=== PATIENT | male | born 1965 | race American Indian/Alaskan Native ===

== ENCOUNTER 2017-08-12 12:37 | Emergency (ER) | payer OTHER ==
[2017-08-12 12:42] VITALS: BP 167/98
[2017-08-12] MEDS ORDERED: ULTRAM PO ONE (13:25)
[2017-08-12] MEDS ORDERED: MOTRIN PO ONE (13:25)
--- NOTE | 2017-08-12 13:27 | Emergency Department Report ---
Blank Doc - Documentation Documentation: Patient is a 51-year-old -[place] male was presented with right shoulder pain. 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 Patient states pain is been progressively worsening over the past 3-4 days. Patient denies any fevers chills nausea vomiting or deformity. Patient states pain is a 7 out of 10 in severity. Patient states he does have full range of motion however is extremely painful. Louie wrap of the right shoulder has been ordered to rule out a large effusion.
--- NOTE | 2017-08-12 14:32 | XRay Report ---
RIGHT SHOULDER: Pain Routine views demonstrate normal bony and soft tissue structures with normal joint alignment of the shoulder. IMPRESSION: Normal study.
--- NOTE | 2017-08-12 14:55 | Emergency Department Report ---
ED General Adult HPI - General Chief complaint: Extremity Injury, Upper Stated complaint: SHOULDER INJURY Time Seen by Provider: 08/12/17 13:06 Source: patient Mode of arrival: Ambulatory Limitations: No Limitations - History of Present Illness Initial comments: Patient is a 51-year-old -[place] male was presented with right shoulder pain. 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 Patient states pain is been progressively worsening over the past 3-4 days. Patient denies any fevers chills nausea vomiting or deformity. Patient states pain is a 7 out of 10 in severity. Patient states he does have full range of motion however is extremely painful. Severity scale (0 -10): 8 - Related Data Previous Rx's Medication Instructions Recorded Last Taken Type Ibuprofen [Motrin] 800 mg PO Q8HR PRN #20 tablet 08/12/17 Unknown Rx methOCARBAMOL [Robaxin TAB] 500 mg PO Q6H PRN #15 tablet 08/12/17 Unknown Rx traMADol [Ultram] 50 mg PO Q6HR PRN #12 tablet 08/12/17 Unknown Rx Allergies Allergy/AdvReac Type Severity Reaction Status Date / Time No Known Allergies Allergy Unverified 08/12/17 12:42 ED Review of Systems ROS: Stated complaint: SHOULDER INJURY Other details as noted in HPI Comment: All other systems reviewed and negative ED Past Medical Hx - Past Medical History Hx Hypertension: Yes Hx Diabetes: Yes - Surgical History Past Surgical History?: No - Social History Smoking Status: Current Every Day Smoker Substance Use Type: Alcohol - Medications Home Medications: Home Medications Medication Instructions Recorded Confirmed Last Taken Type Ibuprofen [Motrin] 800 mg PO Q8HR PRN #20 tablet 08/12/17 Unknown Rx methOCARBAMOL [Robaxin TAB] 500 mg PO Q6H PRN #15 tablet 08/12/17 Unknown Rx traMADol [Ultram] 50 mg PO Q6HR PRN #12 tablet 08/12/17 Unknown Rx ED Physical Exam - General Limitations: No Limitations General appearance: alert, in no apparent distress - Head Head exam: Present: atraumatic, normocephalic - Eye Eye exam: Present: normal appearance - ENT ENT exam: Present: mucous membranes moist - Neck Neck exam: Present: normal inspection - Respiratory Respiratory exam: Present: normal lung sounds bilaterally. Absent: respiratory distress, wheezes, rales, rhonchi - Cardiovascular Cardiovascular Exam: Present: regular rate, normal rhythm. Absent: systolic murmur, diastolic murmur, rubs, gallop - GI/Abdominal GI/Abdominal exam: Present: soft, normal bowel sounds. Absent: distended, tenderness, guarding - Rectal Rectal exam: Present: deferred - Extremities Exam Extremities exam: Present: normal inspection, full ROM, tenderness (right shoulder. There is no deformity. There is no warmth to the skin.) - Back Exam Back exam: Present: normal inspection - Neurological Exam Neurological exam: Present: alert, oriented X3 - Psychiatric Psychiatric exam: Present: normal affect, normal mood - Skin Skin exam: Present: warm, dry, intact, normal color. Absent: rash ED Course Vital Signs 08/12/17 12:40 Temperature 97.9 F Pulse Rate 70 Respiratory 18 Rate Blood Pressure 167/98 O2 Sat by Pulse 95 Oximetry ED Medical Decision Making - Radiology Data Radiology results: report reviewed No acute process - Medical Decision Making No joint effusion is seen on the patient's shoulder x-ray. This makes bursitis less likely. 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 Patient be discharged home with follow-up with orthopedics. Critical care attestation.: If time is entered above; I have spent that time in minutes in the direct care of this critically ill patient, excluding procedure time. ED Disposition Clinical Impression: Rotator cuff (capsule) sprain Qualifiers: Encounter type: initial encounter Laterality: right Qualified Code(s): S43.421A - Sprain of right rotator cuff capsule, initial encounter Disposition: TO HOME OR SELFCARE Is pt being admited?: No Does the pt Need Aspirin: No Condition: Stable Instructions: Rotator Cuff Injury (ED) Prescriptions: Ibuprofen [Motrin] 800 mg PO Q8HR PRN #20 tablet PRN Reason: Pain methOCARBAMOL [Robaxin TAB] 500 mg PO Q6H PRN #15 tablet PRN Reason: Pain traMADol [Ultram] 50 mg PO Q6HR PRN #12 tablet PRN Reason: Pain Referrals: JAH FRANCO MD [Staff Physician] - 3-5 Days
== END 2017-08-12 15:01 | disposition home or self-care (01) ==
LOC: ED 12:37
DX: S43.421A Sprain of right rotator cuff capsule, initial encounter (principal); I10 Essential (primary) hypertension; E11.9 Type 2 diabetes mellitus without complications; F17.200 Nicotine dependence, unspecified, uncomplicated; X50.3XXA Overexertion from repetitive movements, initial encounter; Y93.89 Activity, other specified; Y99.8 Other external cause status; Y92.89 Other specified places as the place of occurrence of the external cause
CPT/HCPCS: 99283

== ENCOUNTER 2017-10-09 20:17 | Inpatient (IN) | payer OTHER ==
[2017-10-09 22:08] LABS: Basophils # (Auto) 0.2 K/mm3 (0.0-0.1); Basophils % (Auto) 1.2 % (0.0-1.8); Eosinophils % (Auto) 0.2 % (0.0-4.3); Hematocrit 49.8 % (35.5-45.6); Hemoglobin 16.5 gm/dl (11.8-15.2); Lymphocytes # (Auto) 2.8 K/mm3 (1.2-5.4); Lymphocytes % (Auto) 21.6 % (13.4-35.0); Mean Corpuscular HGB Conc 33 % (32-34); Mean Corpuscular Hemoglobin 29 pg (28-32); Mean Corpuscular Volume 86 fl (84-94); Monocytes # (Auto) 0.9 K/mm3 (0.0-0.8); Monocytes % (Auto) 6.9 % (0.0-7.3); Platelet Count 282 K/mm3 (140-440); Red Blood Count 5.76 M/mm3 (3.65-5.03); Red Cell Distribution Width 14.1 % (13.2-15.2)
[2017-10-09 22:13] LABS: BUN/Creatinine Ratio 10; Blood Urea Nitrogen 10 mg/dL (9-20); Calcium 9.4 mg/dL (8.4-10.2); Hemolysis Index 14
[2017-10-10] MEDS ORDERED: NACL 0.9% 1000 ML 1,000 ML IV ONE (06:19)
--- NOTE | 2017-10-10 06:19 | Emergency Department Report ---
ED General Adult HPI - General Chief complaint: Dizziness Stated complaint: WELLNESS CHECKUP Time Seen by Provider: 10/10/17 06:16 Source: patient Mode of arrival: Ambulatory Limitations: No Limitations - History of Present Illness Initial comments: 51-year-old male reports the onset of dizziness and nausea this morning. Presented to the emergency department with a heart rate of 145. The rhythm was atrial flutter versus supraventricular tachycardia. At the time of my encounter and noted that his heart rate has spontaneously cardioverted to sinus bradycardia in the 50s. He states that he is feeling less dizzy and his nausea has resolved. He did not experience chest pain or shortness of breath. He states sometimes he is short of breath on exertion but not acutely so today. He did not experience any headache, focal weakness or numbness difficulty speaking or walking. Patient states he's had no prior cardiac problems or evaluation. -: Sudden Consistency: now resolved Improves with: none Worsens with: none Associated Symptoms: denies other symptoms Treatments Prior to Arrival: none - Related Data Previous Rx's Medication Instructions Recorded Last Taken Type Ibuprofen [Motrin] 800 mg PO Q8HR PRN #20 tablet 08/12/17 Unknown Rx methOCARBAMOL [Robaxin TAB] 500 mg PO Q6H PRN #15 tablet 08/12/17 Unknown Rx traMADol [Ultram] 50 mg PO Q6HR PRN #12 tablet 08/12/17 Unknown Rx Allergies Allergy/AdvReac Type Severity Reaction Status Date / Time No Known Allergies Allergy Unverified 08/12/17 12:42 ED Review of Systems ROS: Stated complaint: WELLNESS CHECKUP Other details as noted in HPI Constitutional: denies: chills, fever Eyes: denies: eye pain, eye discharge, vision change ENT: denies: ear pain, throat pain Respiratory: denies: cough, shortness of breath, wheezing Cardiovascular: denies: chest pain, palpitations (patient was unaware of his heart racing and likewise unaware of his spontaneous cardioversion) Endocrine: no symptoms reported Gastrointestinal: denies: abdominal pain, nausea, diarrhea Genitourinary: denies: urgency, dysuria Musculoskeletal: denies: back pain, joint swelling, arthralgia Skin: denies: rash, lesions Neurological: denies: headache, weakness, paresthesias Psychiatric: denies: anxiety, depression Hematological/Lymphatic: denies: easy bleeding, easy bruising ED Past Medical Hx - Past Medical History Previous Medical History?: Yes Hx Hypertension: Yes Hx Diabetes: Yes - Surgical History Past Surgical History?: No - Social History Smoking Status: Current Every Day Smoker Substance Use Type: Alcohol, Marijuana - Medications Home Medications: Home Medications Medication Instructions Recorded Confirmed Last Taken Type Ibuprofen [Motrin] 800 mg PO Q8HR PRN #20 tablet 08/12/17 Unknown Rx methOCARBAMOL [Robaxin TAB] 500 mg PO Q6H PRN #15 tablet 08/12/17 Unknown Rx traMADol [Ultram] 50 mg PO Q6HR PRN #12 tablet 08/12/17 Unknown Rx ED Physical Exam - General Limitations: No Limitations General appearance: alert, in no apparent distress - Head Head exam: Present: atraumatic, normocephalic - Eye Eye exam: Present: normal appearance. Absent: scleral icterus - ENT ENT exam: Present: mucous membranes moist - Neck Neck exam: Present: normal inspection. Absent: tenderness, meningismus - Respiratory Respiratory exam: Present: normal lung sounds bilaterally. Absent: respiratory distress - Cardiovascular Cardiovascular Exam: Present: regular rate, normal rhythm. Absent: systolic murmur, diastolic murmur, rubs, gallop - GI/Abdominal GI/Abdominal exam: Present: soft, normal bowel sounds. Absent: distended, tenderness, guarding, rebound, rigid - Rectal Rectal exam: Present: deferred - Extremities Exam Extremities exam: Present: normal inspection - Back Exam Back exam: Present: normal inspection - Neurological Exam Neurological exam: Present: alert, oriented X3, CN II-XII intact. Absent: motor sensory deficit - Psychiatric Psychiatric exam: Present: normal affect, normal mood - Skin Skin exam: Present: warm, dry, intact, normal color. Absent: rash ED Course Vital Signs 10/09/17 10/10/17 10/10/17 21:05 03:23 04:00 Temperature 99.1 F 98.7 F Pulse Rate 134 H 51 L Pulse Rate [ Lying] Pulse Rate [ Sitting] Pulse Rate [ Standing] Respiratory 20 17 Rate Blood Pressure 117/95 132/95 Blood Pressure 133/92 [Left] Blood Pressure [Lying] Blood Pressure [Sitting] Blood Pressure [Standing] O2 Sat by Pulse 95 97 99 Oximetry 10/10/17 10/10/17 10/10/17 05:00 05:35 06:00 Temperature Pulse Rate Pulse Rate [ 51 L Lying] Pulse Rate [ 55 L Sitting] Pulse Rate [ 56 L Standing] Respiratory Rate Blood Pressure 128/75 127/80 Blood Pressure [Left] Blood Pressure 128/81 [Lying] Blood Pressure 131/78 [Sitting] Blood Pressure 127/76 [Standing] O2 Sat by Pulse 99 99 Oximetry 10/10/17 10/10/17 10/10/17 06:50 07:00 07:10 Temperature 98 F Pulse Rate 65 52 L 54 L Pulse Rate [ Lying] Pulse Rate [ Sitting] Pulse Rate [ Standing] Respiratory 17 18 12 Rate Blood Pressure 137/100 140/101 140/101 Blood Pressure 140/101 [Left] Blood Pressure [Lying] Blood Pressure [Sitting] Blood Pressure [Standing] O2 Sat by Pulse 97 Oximetry 10/10/17 10/10/17 10/10/17 07:20 07:30 07:40 Temperature Pulse Rate 65 57 L 57 L Pulse Rate [ Lying] Pulse Rate [ Sitting] Pulse Rate [ Standing] Respiratory 11 L 14 13 Rate Blood Pressure 137/100 131/98 131/98 Blood Pressure [Left] Blood Pressure [Lying] Blood Pressure [Sitting] Blood Pressure [Standing] O2 Sat by Pulse Oximetry 10/10/17 10/10/17 10/10/17 07:50 08:00 08:10 Temperature 98 F Pulse Rate 53 L 52 L 61 Pulse Rate [ Lying] Pulse Rate [ Sitting] Pulse Rate [ Standing] Respiratory 14 18 6 L Rate Blood Pressure 131/98 134/101 134/101 Blood Pressure 131/101 [Left] Blood Pressure [Lying] Blood Pressure [Sitting] Blood Pressure [Standing] O2 Sat by Pulse 97 Oximetry 10/10/17 10/10/17 10/10/17 08:20 08:30 08:40 Temperature Pulse Rate 58 L 64 53 L Pulse Rate [ Lying] Pulse Rate [ Sitting] Pulse Rate [ Standing] Respiratory 14 10 L 14 Rate Blood Pressure 134/101 139/99 139/99 Blood Pressure [Left] Blood Pressure [Lying] Blood Pressure [Sitting] Blood Pressure [Standing] O2 Sat by Pulse Oximetry 10/10/17 10/10/17 10/10/17 08:50 09:00 09:10 Temperature 98 F Pulse Rate 66 54 L 58 L Pulse Rate [ Lying] Pulse Rate [ Sitting] Pulse Rate [ Standing] Respiratory 13 18 11 L Rate Blood Pressure 139/99 139/97 139/97 Blood Pressure 139/97 [Left] Blood Pressure [Lying] Blood Pressure [Sitting] Blood Pressure [Standing] O2 Sat by Pulse 97 Oximetry 10/10/17 10/10/17 10/10/17 09:20 09:30 09:40 Temperature Pulse Rate 61 57 L 54 L Pulse Rate [ Lying] Pulse Rate [ Sitting] Pulse Rate [ Standing] Respiratory 12 13 18 Rate Blood Pressure 139/97 139/97 138/105 Blood Pressure [Left] Blood Pressure [Lying] Blood Pressure [Sitting] Blood Pressure [Standing] O2 Sat by Pulse Oximetry 10/10/17 10/10/17 09:50 09:57 Temperature 98 F Pulse Rate 55 L 51 L Pulse Rate [ Lying] Pulse Rate [ Sitting] Pulse Rate [ Standing] Respiratory 17 18 Rate Blood Pressure 138/105 Blood Pressure 138/99 [Left] Blood Pressure [Lying] Blood Pressure [Sitting] Blood Pressure [Standing] O2 Sat by Pulse 98 Oximetry - Reevaluation(s) Reevaluation #1: The patient's 12-lead EKG shows a supraventricular tachycardia possibly 21 flutter. He spontaneously reverted to sinus bradycardia. Patient was unaware of these events. I believe monitoring is judicious. He was admitted to the hospitalist service for further care and cardiac evaluation. 10/10/17 11:29 ED Medical Decision Making - Lab Data Result diagrams: 10/09/17 21:33 10/09/17 21:33 Laboratory Results - last 24 hr 10/09/17 10/09/17 21:33 21:33 WBC 13.0 H RBC 5.76 H Hgb 16.5 H Hct 49.8 H MCV 86 MCH 29 MCHC 33 RDW 14.1 Plt Count 282 Lymph % (Auto) 21.6 [place] % (Auto) 6.9 Eos % (Auto) 0.2 Baso % (Auto) 1.2 Lymph # 2.8 [place] # 0.9 H Eos # 0.0 Baso # 0.2 H Seg Neutrophils % 70.1 H Seg Neutrophils # 9.1 H Sodium 141 Potassium 3.2 L Chloride 101.7 Carbon Dioxide 23 Anion Gap 20 BUN 10 Creatinine 1.0 Estimated GFR > 60 BUN/Creatinine Ratio 10 Glucose 107 H Calcium 9.4 - EKG Data -: EKG Interpreted by Me (EKG #1 shows ventricular tachycardia at 145 possibly flutter ) - EKG Data EKG #2 sinus bradycardia slightly leftward axis nonspecific changes 10/10/17 11:31 - Radiology Data Radiology results: report reviewed (chest x-ray no acute process) Critical care attestation.: If time is entered above; I have spent that time in minutes in the direct care of this critically ill patient, excluding procedure time. ED Disposition Clinical Impression: Supraventricular tachycardia Atrial flutter Qualifiers: Atrial flutter type: typical Qualified Code(s): I48.3 - Typical atrial flutter Disposition: DC-09 OP ADMIT IP TO THIS HOSP Is pt being admited?: Yes Does the pt Need Aspirin: Yes Condition: Stable Time of Disposition: 11:32
--- NOTE | 2017-10-10 06:46 | XRay Report ---
FINAL REPORT EXAM: XR CHEST 1V AP HISTORY: hypertension TECHNIQUE: AP portable view(s) of the chest obtained. PRIORS: None. FINDINGS: No mediastinal shift. Cardiac silhouette is not enlarged. No pneumothorax, effusion, or focal pulmonary opacity identified. No acute skeletal findings. IMPRESSION: No acute pulmonary finding identified.
[2017-10-10] MEDS ORDERED: K-DUR PO ONE (07:34)
[2017-10-10 07:53] LABS: INR 0.97 (0.87-1.13)
[2017-10-10 07:54] LABS: Partial Thromboplastin Time 30.1 Sec. (24.2-36.6)
[2017-10-10 08:01] LABS: Creatine Kinase MB 4.5 ng/mL (0.0-4.0)
[2017-10-10 08:03] LABS: Alanine Aminotransferase 19 units/L (7-56)
[2017-10-10 08:07] LABS: Free T4 (Free Thyroxine) 1.2 ng/dL (0.76-1.46)
[2017-10-10 08:28] LABS: Bilirubin,Direct < 0.2 mg/dL (0-0.2)
--- NOTE | 2017-10-10 09:56 | History and Physical Report ---
History of Present Illness Date of examination: 10/10/17 Date of admission: 10/10/17 09:05 History of present illness: 51-year-old male with history of hypertension, diabetes and questionable CHF presented to the ER with the onset of dizziness and nausea since this morning. Patient states that he has been feeling weak for last couple days and experienced chest tightness. 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 But he felt dizzy lightheaded, and felt his heart was beating too fast. He also experienced retrosternal chest tightness. He then decided to come to the hospital for further evaluation. On presentation to the emergency department his heart rate was 145. The rhythm was atrial flutter versus supraventricular tachycardia. He then spontaneously cardioverted to sinus bradycardia in the 50s. He now states that he is feeling less dizzy and his nausea has resolved. He does not have any chest pain or shortness of breath now. He states sometimes he is short of breath on exertion but not acutely so today. He did not experience any headache, focal weakness or numbness difficulty speaking or walking. He was called for admission for further evaluation and management. Past medical History: h/o hypertension, diabetes mellitus and CHF Past surgical History: None Social History: Lives with family, positive for smoking, denies drinking and elicit drug abuse. Family History: Significant for diabetes and hypertension. Review of System: Constitutional: no fever, no chills, no weight loss Ears, eyes, nose, mouth and throat: no nasal congestion, no nasal discharge, no sinus pressure, no vision change, no red eye. Neck: No neck pain or rigidity. Cardiovascular: No chest pain, no orthopnea, no palpitations, no leg swelling Respiratory: no shortness of breath, no cough, no congestion, no wheezing Gastrointestinal: no abdominal pain, no nausea, no vomiting Genitourinary : no dysuria, no hematuria Musculoskeletal: no joint swelling or muscle ache Integumentary: no rash, no pruritis Neurological: no parathesias, no numbness, no tingling Endocrine: no cold or heat intolerance, no polyuria or polydipsia Hematologic/Lymphatic: no easy bruising, no easy bleeding, no gland swelling Allergic/Immunologic: no urticaria, no angioedema. Medications and Allergies Allergies Allergy/AdvReac Type Severity Reaction Status Date / Time No Known Allergies Allergy Unverified 08/12/17 12:42 Home Medications Medication Instructions Recorded Confirmed Last Taken Type No Known Home Medications [No 10/12/17 10/12/17 Unknown History Reported Home Medications] Active Meds: Active Medications Sodium Chloride (Nacl 0.9% 1000 Ml) 1,000 mls @ 125 mls/hr IV ONCE ONE Stop: 10/10/17 14:18 Last Admin: 10/10/17 06:48 Dose: 125 mls/hr Exam - Physical Exam Narrative exam: GENERAL: well-developed and well-nourished male lying on bed appeared to be in no discomfort. HEENT: Normocephalic. Atraumatic. No conjunctival congestion or icterus. Patient has moist mucous membranes. NECK: Supple. Trachea midline. CHEST/LUNGS: Clear to auscultated bilaterally, breathing nonlabored. No wheezes crackles or rhonchi. HEART/CARDIOVASCULAR: Regular in rate and rhythm. S1 and S2 positive. ABDOMEN: Abdomen is soft, nontender. Patient has normal bowel sounds. SKIN: There is no rash. Warm and dry. NEURO: No focal motor deficit. Follows command. MUSCULOSKELETAL: No joint effusion or tenderness. EXTRIMITY: No edema, no cyanosis or clubbing. PSYCH: Cooperative. - Constitutional Vitals: Temp Pulse Resp BP Pulse Ox 98.7 F 51 L 17 127/80 99 10/10/17 03:23 10/10/17 05:35 10/10/17 03:23 10/10/17 06:00 10/10/17 06:00 Results - Labs CBC & Chem 7: 10/10/17 11:50 10/11/17 07:51 Labs: Abnormal lab results 10/09/17 10/09/17 10/10/17 Range/Units 21:33 21:33 07:11 WBC 13.0 H (4.5-11.0) K/mm3 RBC 5.76 H (3.65-5.03) M/mm3 Hgb 16.5 H (11.8-15.2) gm/dl Hct 49.8 H (35.5-45.6) % [place] # 0.9 H (0.0-0.8) K/mm3 Baso # 0.2 H (0.0-0.1) K/mm3 Seg Neutrophils % 70.1 H (40.0-70.0) % Seg Neutrophils # 9.1 H (1.8-7.7) K/mm3 Potassium 3.2 L (3.6-5.0) mmol/L Glucose 107 H (75-100) mg/dL Total Creatine Kinase 286 H (55-170) units/L CK-MB (CK-2) 4.5 H (0.0-4.0) ng/mL Assessment and Plan Atrial flutter - Converted to sinus rhythm now - We'll continue to monitor - We'll place on Cardizem by mouth 30 mg every 6 hours - We'll get 2-D echocardiogram, consult cardiology - We'll follow cardiology recommendation for anticoagulation Hypertension, benign - We'll manage with Cardizem for now - Adjust med as needed Diabetes mellitus type 2, will obtain A1c, SSI for now Hypokalemia, will replete and monitor CHF by history - Patient does not know his ejection fraction - No previous records available at this time - We'll follow 2-D echocardiogram result - Patient appears compensated now, no sign of CHF exacerbation DVT prophylaxis, with Lovenox
[2017-10-10 10:54] LABS: Bacteria,Urine 1+ /HPF (Negative); Bilirubin,Urine NEG (Negative); Blood,Urine NEG (Negative); Color,Urine Yellow (Yellow); Mucus,Urine 3+ /HPF; Urobilinogen,Urine < 2.0 mg/dL (<2.0)
[2017-10-10 11:07] LABS: Amphetamine Screen,Urine PRESUMPTIVE NEGATIVE; Benzodiazepines Screen,Urine PRESUMPTIVE NEGATIVE; Methadone Screen,Urine PRESUMPTIVE NEGATIVE; Opiate Screen,Urine PRESUMPTIVE NEGATIVE
[2017-10-10 11:20] LABS: Cannabinoid Screen,Urine PRESUMPTIVE POSITIVE; Cocaine Screen,Urine PRESUMPTIVE POSITIVE
[2017-10-10 12:23] LABS: Hemoglobin 15.4 gm/dl (11.8-15.2); Mean Corpuscular HGB Conc 33 % (32-34); Mean Corpuscular Hemoglobin 29 pg (28-32); Mean Corpuscular Volume 86 fl (84-94); Platelet Count 245 K/mm3 (140-440); Red Blood Count 5.37 M/mm3 (3.65-5.03); Red Cell Distribution Width 14.1 % (13.2-15.2)
[2017-10-10] MEDS: CARDIZEM PO SCH ×2 (15:41→18:34)
[2017-10-10] MEDS: HALFPRIN EC PO SCH (15:41)
[2017-10-10] MEDS: LOVENOX SUB-Q SCH (22:16)
[2017-10-11] MEDS: CARDIZEM PO SCH ×4 (03:19→17:34)
[2017-10-11 08:41] LABS: BUN/Creatinine Ratio 11; Blood Urea Nitrogen 12 mg/dL (9-20); Calcium 8.7 mg/dL (8.4-10.2); Hemolysis Index 6
[2017-10-11] MEDS: HALFPRIN EC PO SCH (09:11)
[2017-10-11] MEDS ORDERED: K-DUR PO NR (11:25)
--- NOTE | 2017-10-11 13:05 | XRay Report ---
AP CHEST: HISTORY: Short of breath AP view of the chest demonstrates a normal mediastinal and cardiac contour with clear lungs and normal bony and soft tissue structures. IMPRESSION: Unremarkable AP chest.
--- NOTE | 2017-10-11 14:37 | Progress Note ---
Subjective Date of service: 10/11/17 Interval history: CONSULT DICTATED RECOMM ECHO//THALL//ELIQUIS Objective Vital Signs Temp Pulse Resp BP BP Pulse Ox 10/11/17 12:09 57 L 10/11/17 11:18 98.2 F 69 20 189/117 99 10/11/17 11:11 68 10/11/17 07:53 97.7 F 60 20 144/99 96 10/11/17 06:33 75 131/78 10/11/17 04:36 98.9 F 75 18 131/78 98 10/11/17 04:10 161/111 10/11/17 03:56 60 10/11/17 03:19 60 163/109 10/11/17 01:13 98 F 60 18 163/109 100 10/11/17 00:16 163/109 10/10/17 20:22 97.9 F 77 20 156/101 95 10/10/17 19:17 73 156/101 97 10/10/17 18:34 68 10/10/17 15:41 65 138/85 10/10/17 15:37 97.8 F 57 L 20 138/85 94 - Labs and Meds Comprehensive Metabolic Panel 10/11/17 Range/Units 07:51 Sodium 142 (137-145) mmol/L Potassium 3.3 L (3.6-5.0) mmol/L Chloride 102.0 (98-107) mmol/L Carbon Dioxide 26 (22-30) mmol/L BUN 12 (9-20) mg/dL Creatinine 1.1 (0.8-1.5) mg/dL Glucose 95 (75-100) mg/dL Calcium 8.7 (8.4-10.2) mg/dL
--- NOTE | 2017-10-11 18:50 | Progress Note ---
Assessment and Plan Atrial flutter - Converted to sinus rhythm since admission - We'll continue to monitor - cont on Cardizem by mouth 30 mg every 6 hours - preserved EF on 2-D echocardiogram, consulted cardiology - We'll follow cardiology recommendation for anticoagulation, plan for stress test tomorrow Hypertension, benign - We'll manage with Cardizem for now - Adjust med as needed Diabetes mellitus type 2, will obtain A1c, SSI for now Hypokalemia, will replete and monitor CHF by history, ruled out - Patient appears compensated now, no sign of CHF exacerbation - preserved EF on 2d echo DVT prophylaxis, with Lovenox Subjective Date of service: 10/11/17 Interval history: Pt seen and examined no chest pain or SOB Objective - Exam Narrative Exam: GENERAL: well-developed and well-nourished male lying on bed appeared to be in no discomfort. HEENT: Normocephalic. Atraumatic. No conjunctival congestion or icterus. Patient has moist mucous membranes. NECK: Supple. Trachea midline. CHEST/LUNGS: Clear to auscultated bilaterally, breathing nonlabored. No wheezes crackles or rhonchi. HEART/CARDIOVASCULAR: Regular in rate and rhythm. S1 and S2 positive. ABDOMEN: Abdomen is soft, nontender. Patient has normal bowel sounds. SKIN: There is no rash. Warm and dry. NEURO: No focal motor deficit. Follows command. MUSCULOSKELETAL: No joint effusion or tenderness. EXTRIMITY: No edema, no cyanosis or clubbing. PSYCH: Cooperative. - Constitutional Vitals: Vital Signs - 12hr 10/11/17 10/11/17 10/11/17 07:53 11:11 11:18 Temperature 97.7 F 98.2 F Pulse Rate 60 68 69 Respiratory 20 20 Rate Blood Pressure 144/99 189/117 O2 Sat by Pulse 96 99 Oximetry 10/11/17 10/11/17 10/11/17 12:09 16:18 17:34 Temperature 98.3 F Pulse Rate 57 L 64 64 Respiratory 20 Rate Blood Pressure 150/89 150/89 O2 Sat by Pulse 94 Oximetry - Labs CBC & Chem 7: 10/10/17 11:50 10/11/17 07:51 Labs: Abnormal lab results 10/11/17 Range/Units 07:51 Potassium 3.3 L (3.6-5.0) mmol/L
[2017-10-11] MEDS: LOVENOX SUB-Q SCH (22:15)
[2017-10-12] MEDS: CARDIZEM PO SCH ×3 (00:10→11:42)
--- NOTE | 2017-10-12 10:56 | Consultation ---
HISTORY OF PRESENT ILLNESS: The patient is a 51-year-old male with a history of hypertension, diabetes, hyperlipidemia, heart failure, and smoking. He presented with dizziness and nausea, was found to be in atrial flutter with a rapid ventricular response. He spontaneously converted to sinus rhythm. There has been no chest pain or shortness of breath. There is a prior history of congestive heart failure, but no history of strokes or coronary artery disease. He states his blood pressure is under control. He is trying to stop smoking, only smoking a few cigarettes a day. He is moderately active and works as a truck sales representative. He had occasional dyspnea on exertion. He did not describe any sleep disorders and he is trying to eat healthy. He sees a doctor on a regular basis. PAST HISTORY: Smoking just a few cigarettes a day. Alcohol, no heavy use. OPERATIONS: None. FAMILY HISTORY: Diabetes and hypertension. MEDICATIONS: See the nurse's list. REVIEW OF SYSTEMS: No other complaints or medical problems. ALLERGIES: None. HOME MEDICATIONS: Include Motrin, Ultram, Robaxin. PHYSICAL EXAMINATION: GENERAL: Well-developed, well-nourished, in no acute distress. Alert, oriented and cooperative. Mental status normal. EYES, EARS, NOSE, AND THROAT: Unremarkable. NECK: Reveals no JVD or bruits. Neck is supple, no masses. LUNGS: Clear. No labored respirations. HEART: Regular rhythm, S4 gallop. No murmurs or rubs. ABDOMEN: Soft, nontender, no masses. Slightly overweight. Bowel sounds intact. EXTREMITIES: No cyanosis, clubbing, or edema. Peripheral pulses are intact. NEUROLOGICAL: Symmetrical. SKIN: Clear. LABORATORY DATA: EKG sinus rhythm with mild T-wave inversions. IMPRESSION: 1. Paroxysmal atrial flutter. I am told this is atrial flutter, but the 12-lead shows sinus rhythm. Rhythm strips are pending. If he is in atrial flutter as opposed to SVT, then anticoagulation with a medication like Eliquis will probably be beneficial long-term. EP should be consulted for possible ablation procedure. The patient will be reevaluated with echocardiography and stress thallium scanning given his risk factors. 2. Hypertension. 3. Hyperlipidemia. 4. Diabetes. 5. Prior history of congestive heart failure. 6. Mild hypokalemia. 7. Nicotine dependence. PLAN: As above, risk factor modification was encouraged. Thank you for this consultation. JOB# [id number] JOSUÉ/DAYDAY
[2017-10-12] MEDS ORDERED: HumuLIN R SUB-Q SCH (11:30)
[2017-10-12] MEDS: HALFPRIN EC PO SCH (11:42)
[2017-10-12 12:01] VITALS: BP 174/106
--- NOTE | 2017-10-12 12:56 | Progress Note ---
Assessment and Plan - Patient Problems (1) Atrial flutter Current Visit: Yes Status: Acute Qualifiers: Atrial flutter type: typical Qualified Code(s): I48.3 - Typical atrial flutter Plan to address problem: Patient is a 51-year-old man who was admitted to this hospital 3 days ago with palpitations and dizziness. In his records, there has been a detailed report of presentation with a narrow complex tachycardia at 145 bpm which was variously reported as atrial flutter or SVT. The patient is reported to have converted spontaneously to sinus rhythm. My extensive review of his charts and ECG tracings, have only revealed a stable sinus rhythm. There are no EKG strips documenting the narrow complex tachycardia. He has undergone extensive cardiac noninvasive workup. Echocardiogram reveals well-preserved left ventricular systolic function, ejection fraction 55-60%. A thallium stress test done today, he exercised 7 minutes of Stas Borow, with no chest pain and no ST changes, thallium images negative for ischemia. A TSH level was normal at 1.8. Recommendations: I strongly recommend that efforts made to retrieve the ECG recordings of the patient's presenting narrow complex tachycardia either from the collet driller or from the emergency room transition. No further cardiac workup is indicated, but empiric therapy for paroxysmal atrial flutter has been recommended with beta blockers and oral anticoagulation with Eliquis. Patient is stable for cardiac discharge on beta blockers and Eliquis. Subjective Date of service: 10/12/17 Interval history: Patient is a 51-year-old man who was admitted to this hospital 3 days ago with palpitations and dizziness. In his records, there has been a detailed report of presentation with a narrow complex tachycardia at 145 bpm which was variously reported as atrial flutter or SVT. The patient is reported to have converted spontaneously to sinus rhythm. My extensive review of his charts and ECG tracings, have only revealed a stable sinus rhythm. There are no EKG strips documenting the narrow complex tachycardia. He has undergone extensive cardiac noninvasive workup. Echocardiogram reveals well-preserved left ventricular systolic function, ejection fraction 55-60%. A thallium stress test done today, he exercised 7 minutes of Sats Borow, with no chest pain and no ST changes, thallium images negative for ischemia. A TSH level was normal at 1.8. Objective Vital Signs Temp Pulse Resp BP BP Pulse Ox 05/07/18 11:40 98.4 F 71 20 174/106 98 10/12/17 06:42 58 L 10/12/17 04:17 97.9 F 56 L 99 10/12/17 00:10 72 166/102 10/11/17 23:30 69 166/102 98 10/11/17 23:29 98.5 F 69 20 166/102 95 10/11/17 19:12 98.2 F 75 20 140/93 99 10/11/17 17:34 64 150/89 10/11/17 16:18 98.3 F 64 20 150/89 94 - Physical Examination General: Appears Well, No Apparent Distress HEENT: Positive: PERRL Neck: Positive: neck supple Cardiac: Positive: Reg Rate and Rhythm Lungs: Positive: Decreased Breath Sounds Neuro: Positive: Grossly Intact Abdomen: Positive: Soft Skin: Positive: Clear Extremities: Present: edema
--- NOTE | 2017-10-12 13:52 | Discharge Summary ---
Providers - Providers Date of Admission: 10/10/17 09:05 Date of discharge: 10/12/17 Attending physician: JARAD SEVILLA 10/10/17 09:57 Consult to Physician [CONS] Routine Comment: Consulting Provider: BIRD LORD Physician Instructions: Reason For Exam: atrial flutter Primary care physician: JAH JOHNSTON MD Hospitalization Condition: Stable Hospital course: Patient is a 51-year-old man who was admitted to this hospital with c/o palpitations and dizziness. On his presentation per ER record he was with a narrow complex tachycardia at 145 bpm which reported as atrial flutter or SVT then converted spontaneously to sinus rhythm. He has undergone extensive cardiac noninvasive workup. Echocardiogram reveals well-preserved left ventricular systolic function, ejection fraction 55-60%. A thallium stress test done, he exercised 7 minutes of Stas Borow, with no chest pain and no ST changes, thallium images negative for ischemia. A TSH level was normal at 1.8. No further cardiac workup is recommended by cardiology, and advised empiric therapy for paroxysmal atrial flutter with beta blockers and oral anticoagulation with Eliquis. Patient is stable for discharge on beta blockers and Eliquis. Discharge diagnosis: Paroxysmal Atrial flutter - Converted to sinus rhythm since admission - preserved EF on 2-D echocardiogram, consulted cardiology - normal exercise stress test - discharged home with BB and eliquis Hypertension, benign Diabetes mellitus type 2, dietary recommendation Hypokalemia, repleted and monitored CHF by history, ruled out - Patient appears compensated now, no sign of CHF exacerbation - preserved EF on 2d echo Cocaine abuse, counselled for cessation Disposition: - TO HOME OR SELFCARE Time spent for discharge: 32 minutes Core Measure Documentation - Palliative Care Palliative Care/ Comfort Measures: Not Applicable - Core Measures Any of the following diagnoses?: none Exam - Physical Exam Narrative exam: GENERAL: well-developed and well-nourished male lying on bed appeared to be in no discomfort. HEENT: Normocephalic. Atraumatic. No conjunctival congestion or icterus. Patient has moist mucous membranes. NECK: Supple. Trachea midline. CHEST/LUNGS: Clear to auscultated bilaterally, breathing nonlabored. No wheezes crackles or rhonchi. HEART/CARDIOVASCULAR: Regular in rate and rhythm. S1 and S2 positive. ABDOMEN: Abdomen is soft, nontender. Patient has normal bowel sounds. SKIN: There is no rash. Warm and dry. NEURO: No focal motor deficit. Follows command. MUSCULOSKELETAL: No joint effusion or tenderness. EXTRIMITY: No edema, no cyanosis or clubbing. PSYCH: Cooperative. - Constitutional Vitals: Temp Pulse Resp BP Pulse Ox 98.4 F 71 20 174/106 98 10/12/17 11:40 10/12/17 11:40 10/12/17 11:40 10/12/17 11:40 10/12/17 11:40 Plan Activity: advance as tolerated Weight Bearing Status: Weight Bear as Tolerated Diet: low fat, low salt, diabetic Additional Instructions: Can go back to work on Thursday. f/u with cardiology in one week. Follow up with: JAH JOHNSTON MD [Primary Care Provider] - 3-5 Days Prescriptions: Apixaban [Eliquis] 5 mg PO BID #60 tablet Carvedilol [Coreg] 3.125 mg PO BID #60 tablet
[2017-10-12 14:59] LABS: BUN/Creatinine Ratio 10; Blood Urea Nitrogen 10 mg/dL (9-20); Calcium 9.1 mg/dL (8.4-10.2); Hemolysis Index 10
--- NOTE | 2017-10-13 02:06 | Treadmill Report ---
THALLIUM STRESS TEST LEFT VENTRICLE: Left ventricle is at the upper limits of normal in size. Perfusion study demonstrates a small fixed basal inferior defect with no reversibility on the resting study. Gated analysis suggests mild left ventricular systolic dysfunction, with ejection fraction calculated at 45%. CONCLUSION: Small fixed basal inferior defect is likely due to diaphragmatic attenuation artifact. There is no ischemia demonstrated on this study. Clinical correlation is recommended. Echocardiographic reassessment of left ventricular systolic function is recommended. [facility]# [id number] CA/NTS
== END 2017-10-12 15:38 | disposition home or self-care (01) | DRG 310 ==
LOC: ED 20:17 → 4A 10-10 09:05
PROVIDERS: ADMIT Internal Medicine; ATTEND Internal Medicine
DX: I48.3 Typical atrial flutter (principal); I10 Essential (primary) hypertension; I47.1 Supraventricular tachycardia; E11.9 Type 2 diabetes mellitus without complications; F17.210 Nicotine dependence, cigarettes, uncomplicated; E87.6 Hypokalemia; F14.10 Cocaine abuse, uncomplicated; E78.5 Hyperlipidemia, unspecified
CPT/HCPCS: 36415; 71045; 78452; 80048; 80074; 80307; 81001; 82550; 82553; 82962; 83036; 83735; 83880; 84439; 84443; 84484; 85025; 85027; 85610; 85730; 93005; 93010; 93017; 93306; 96360; 96361; A9270-GY; A9502; J1650; J7030